=== PATIENT | female | born 1985 | race Caucasian/White ===

== ENCOUNTER 2017-05-20 16:14 | Observation (INO) ==
--- NOTE | 2017-05-20 17:22 | Discharge Summary ---
Date of Encounter: 05/20/17 Time of Encounter: 17:21 - Discharge Diagnosis (1) 32 weeks gestation of Priority: Primary Status: Acute Comments: admitted for observation After RNST patient discharge to go to ER for evaluation of Gallbladder. (2) NST (non-stress test) reactive Priority: Secondary Status: Acute Comments: 135 bpm moderate variability +15x15 accels no decels noted. No contractions noted - Discharge Medications Home Medications: Cetirizine HCl [Zyrtec] 10 mg PO DAILY 09/29/15 [History] Vit/FA 1 each PO DAILY 09/29/15 [History] Ranitidine HCl [Zantac] 150 mg PO BID 09/29/15 [History] Albuterol Sulfate [Albuterol Inhaler] 2 puff IH Q6HR PRN #1 inhaler 11/04/15 [Rx ] Ferrous Sulfate 325 mg PO DAILY #30 tablet 11/04/15 [Rx] Ibuprofen [Motrin] 600 mg PO TID #30 tablet 11/04/15 [Rx] HYDROcodone/Acet 5/325 mg [[place] 5-325 mg] 1 tab PO Q4H PRN #10 tab 03/19/16 [Rx ] Ondansetron [Zofran] 4 mg PO Q8HR #15 tablet 03/19/16 [Rx] Allergies/Adverse Reactions: Allergies morphine Allergy (Verified 03/19/16 18:51) Hives acetaminophen [From Darvocet-N] Adverse Reaction (Verified 03/19/16 18:51) Vomiting propoxyphene [From Darvocet-N] Adverse Reaction (Verified 03/19/16 18:51) Vomiting Date of admission: 05/20/17 16:14 Primary care physician: PCP NO Discharging clinician: Sarah Hernandez Anticipated date of discharge: 05/20/17 - Patient Status Disposition: Home, Self-Care - Discharge Instructions Follow Up With: NO,PCP [Primary Care Provider] - - Diet and Activity Activity: increase activity as tolerated Hospital Course BODY LINER Hospital course: Patient is 32 y/o at 32 weeks presents with c/o gallbladder attack. Patient denies contractions, LOF or VB. Patient reports +FM. Time Attestation: Total time spent providing and/or coordinating discharge services: Time Spent: Less than 30 minutes Exam - Constitutional General appearance IM: A&O X 3, pleasant, answers questions appropriately (FHR 135bpm moderate variability +15x15 accels no decels noted. RNST) - VTE Reasons for not Prescribing Prophylaxis: Treatment not Indicated - Low risk for VTE
== END 2017-05-20 17:25 | disposition home or self-care (01) ==
LOC: 1NENULAB
PROVIDERS: ADMIT Obstetrics & Gynecology; ATTEND Obstetrics & Gynecology

== ENCOUNTER 2017-06-16 21:04 | Observation (INO) ==
[2017-06-16 21:59] VITALS: BP 128/62
--- NOTE | 2017-06-16 22:37 | Discharge Summary ---
Date of Encounter: 06/16/17 - Discharge Diagnosis (1) uterine contractions in third trimester, antepartum Status: Acute - Discharge Medications Home Medications: Cetirizine HCl [Zyrtec] 10 mg PO DAILY 09/29/15 [History] Vit/FA 1 each PO DAILY 09/29/15 [History] Ranitidine HCl [Zantac] 150 mg PO BID 09/29/15 [History] Albuterol Sulfate [Albuterol Inhaler] 2 puff IH Q6HR PRN #1 inhaler 11/04/15 [Rx ] Ferrous Sulfate 325 mg PO DAILY #30 tablet 11/04/15 [Rx] Ibuprofen [Motrin] 600 mg PO TID #30 tablet 11/04/15 [Rx] HYDROcodone/Acet 5/325 mg [[place] 5-325 mg] 1 tab PO Q4H PRN #10 tab 03/19/16 [Rx ] Ondansetron [Zofran] 4 mg PO Q8HR #15 tablet 03/19/16 [Rx] Promethazine [Phenergan] 25 mg PO Q8HR PRN #8 tablet 05/20/17 [Rx] Ranitidine Oral Soln [Zantac] 150 mg PO BID #500 ml 05/20/17 [Rx] Allergies/Adverse Reactions: Allergies morphine Allergy (Verified 03/19/16 18:51) Hives acetaminophen [From Darvocet-N] Adverse Reaction (Verified 03/19/16 18:51) Vomiting propoxyphene [From Darvocet-N] Adverse Reaction (Verified 03/19/16 18:51) Vomiting Date of admission: 06/16/17 21:04 Primary care physician: PCP NONE - Patient Status Disposition: Home, Self-Care - Discharge Instructions Follow Up With: NONE,PCP [Primary Care Provider] - Additional Instructions: LABOR AND DELIVERY DISCHARGE INSTRUCTIONS Signs and Symptoms to be Reported to your Doctor Immediately: * Sudden gush, continuous or intermittent lead of fluid from vagina (note the time of gush and color of fluid) * Onset of bright red vaginal bleeding with or without pain (if you had a vaginal exam during this visit you may notice some dark red spotting. This is normal.) * Lower abdominal cramping or backache that is premenstrual-like feeling. * More than 6 contractions in one hour. * Burning during urination, having to urinate more frequently or pain in your mid-back. * A change in the baby's activity. This could be an increase or decrease in activity. * Severe headache which does not go away with tylenol. * Sudden swelling in the face, hands, arms and/or legs. * Upper abdominal pain - sometimes associated with heartburn or nausea and is not relieved by Maalox, Mylanta or Tums. * Dizziness or blurred vision or visual disturbances (seeing stars/lights). * Kick Counts One hour after a meal, lay down on one side in a quiet place. Count the number of avani the baby moves during an hour. If less than 6 movements, notify your physician. Diet: *Force fluids - 8-10 tall glasses of fluid per day. May include popsicles and jello. *Limit caffeine - this includes chocolate, coffee, tea, any soft drink containing such as all gallo, Jethro Yellow and Mountain Dew Hospital Course BUN ICER Time Attestation: Total time spent providing and/or coordinating discharge services: Exam - Constitutional Vitals: Temp Pulse Resp BP 97.5 F L 97 14 128/62 06/16/17 21:50 06/16/17 21:50 06/16/17 21:50 06/16/17 21:50 General appearance IM: A&O X 3 - Respiratory Respiratory exam: Present: CTAB - Cardiovascular Cardiovascular exam IM: Present: +S1, +S2 - GI/Abdominal GI/Abdominal exam IM: normal bowel sounds - Neurological Exam Neurological exam: CN II-XII intact - VTE Reasons for not Prescribing Prophylaxis: Treatment not Indicated - Low risk for VTE
--- NOTE | 2017-06-21 10:36 | Discharge Summary ---
Date of Encounter: 06/16/17 Time of Encounter: 22:00 - Discharge Diagnosis (1) 36 weeks gestation of Priority: Secondary Status: Chronic (2) False labor Priority: Primary Status: Ruled-out - Discharge Medications Home Medications: Cetirizine HCl [Zyrtec] 10 mg PO DAILY 09/29/15 [History] Vit/FA 1 each PO DAILY 09/29/15 [History] Ranitidine HCl [Zantac] 150 mg PO BID 09/29/15 [History] Albuterol Sulfate [Albuterol Inhaler] 2 puff IH Q6HR PRN #1 inhaler 11/04/15 [Rx ] Ferrous Sulfate 325 mg PO DAILY #30 tablet 11/04/15 [Rx] Ibuprofen [Motrin] 600 mg PO TID #30 tablet 11/04/15 [Rx] HYDROcodone/Acet 5/325 mg [[place] 5-325 mg] 1 tab PO Q4H PRN #10 tab 03/19/16 [Rx ] Ondansetron [Zofran] 4 mg PO Q8HR #15 tablet 03/19/16 [Rx] Promethazine [Phenergan] 25 mg PO Q8HR PRN #8 tablet 05/20/17 [Rx] Ranitidine Oral Soln [Zantac] 150 mg PO BID #500 ml 05/20/17 [Rx] Allergies/Adverse Reactions: Allergies morphine Allergy (Verified 03/19/16 18:51) Hives acetaminophen [From Darvocet-N] Adverse Reaction (Verified 03/19/16 18:51) Vomiting propoxyphene [From Darvocet-N] Adverse Reaction (Verified 03/19/16 18:51) Vomiting Date of admission: 06/16/17 21:04 Primary care physician: PCP NONE - Patient Status Disposition: Home, Self-Care Condition: Good Functional capacity at discharge: independent ambulation Overall status at discharge: patient is back to baseline - Discharge Instructions Follow Up With: NONE,PCP [Primary Care Provider] - Additional Instructions: LABOR AND DELIVERY DISCHARGE INSTRUCTIONS Signs and Symptoms to be Reported to your Doctor Immediately: * Sudden gush, continuous or intermittent lead of fluid from vagina (note the time of gush and color of fluid) * Onset of bright red vaginal bleeding with or without pain (if you had a vaginal exam during this visit you may notice some dark red spotting. This is normal.) * Lower abdominal cramping or backache that is premenstrual-like feeling. * More than 6 contractions in one hour. * Burning during urination, having to urinate more frequently or pain in your mid-back. * A change in the baby's activity. This could be an increase or decrease in activity. * Severe headache which does not go away with tylenol. * Sudden swelling in the face, hands, arms and/or legs. * Upper abdominal pain - sometimes associated with heartburn or nausea and is not relieved by Maalox, Mylanta or Tums. * Dizziness or blurred vision or visual disturbances (seeing stars/lights). * Kick Counts One hour after a meal, lay down on one side in a quiet place. Count the number of avani the baby moves during an hour. If less than 6 movements, notify your physician. Diet: *Force fluids - 8-10 tall glasses of fluid per day. May include popsicles and jello. *Limit caffeine - this includes chocolate, coffee, tea, any soft drink containing such as all gallo, [place] Yellow and Mountain Dew - Diet and Activity Activity: increase activity as tolerated Diet: advance to your usual diet Hospital Course ASSISTANT CREDIT MANAGER Time Attestation: Total time spent providing and/or coordinating discharge services: Exam - Constitutional Vitals: Temp Pulse Resp BP 97.5 F L 97 14 128/62 06/16/17 21:50 06/16/17 21:50 06/16/17 21:50 06/16/17 21:50 per nurses - VTE Reasons for not Prescribing Prophylaxis: Treatment not Indicated - Low risk for VTE - Attending Attestation isai judd md facog
== END 2017-06-16 22:30 | disposition home or self-care (01) ==
LOC: 1NENULAB
PROVIDERS: ADMIT Obstetrics & Gynecology; ATTEND Obstetrics & Gynecology

== ENCOUNTER → 2018-09-01 23:01 | Observation (INO) ==
[2018-09-01 21:22] LABS: Amphetamine Screen,Urine Negative ng/mL (Cutoff=1000); Barbiturate Screen,Urine Negative ng/mL (Cutoff=200); Benzodiazepines Screen,Urine Negative ng/mL (Cutoff=200); Cannabinoid Screen,Urine Negative ng/mL (Cutoff = 50); Cocaine Screen,Urine Negative ng/mL (Cutoff= 300); Opiate Screen,Urine Negative ng/mL (Cutoff=300); Phencyclidine Screen,Urine Negative ng/mL (Cutoff=25)
[2018-09-01 21:30] LABS: Basophils # 0.1 K/mcL (0.0-0.2); Basophils % 0.3 %; Eosinophils # 0.1 K/mcL (0.0-0.6); Eosinophils % 0.3 %; Hematocrit 35.8 % (35.3-44.9); Hemoglobin 11.9 g/dL (11.5-15.4); Immature Granulocytes % 0.4 % (0-4); Lymphocytes # 2.6 K/mcL (0.6-4.6); Lymphocytes % 12.8 %; Mean Corpuscular HGB Conc 33.2 g/dL (31.6-35.5); Mean Corpuscular Volume 87.1 fL (83.0-100.0); Mean Platelet Volume 11.1 fL (9.4-12.4); Monocytes # 1.4 K/mcL (0.0-1.3); Monocytes % 6.6 %; Neutrophils # 16.3 K/mcL (1.6-8.9); Platelet Count 309 K/mcL (140-400); Red Blood Count 4.11 M/mcL (3.82-4.97); Red Cell Distribution Width 13.9 % (11.5-14.5); Segmented Neutrophils % 79.6 %
[2018-09-01 21:32] LABS: Alanine Aminotransferase 9 Units/L (7-52); Aspartate Amino Transferase 12 Units/L (13-39); BUN/Creatinine Ratio 16 (6-26); Blood Urea Nitrogen 7 mg/dL (6-20); Lactate Dehydrogenase 138 Units/L (140-271); Uric Acid 5.4 mg/dL (2.3-7.6); eGFR For Non-African Americans > 60 (> 60)
--- NOTE | 2018-09-01 22:16 | OB/GYN Progress Note ---
Date of Encounter: 09/01/18 Time of Encounter: 22:10 - Assessment and Plan (1) False labor Current Visit: Yes Status: Acute SVE 1cm. Was 3cm at last visit according to pt. Rare contractions on toco. SSE with negative pooling, negative fern. Discharge home with precautions. POC discussed with Dr. Ramos who reviewed her FHT tracing. (2) 37 weeks gestation of Current Visit: No Status: Chronic PIH labs collected due to pt report of preeclampsia. BP's normal. Labs normal. (3) Tobacco abuse Current Visit: Yes Status: Acute (4) History of substance abuse Current Visit: Yes Status: Acute Subjective - Subjective Interval history: 33 year-old presenting with a reported EDC 09/08/18 with c/o abdominal pressure and leaking fluid. She denies bleeding or other complaints. Good FM. She reports receiving care at [facility] and at [facility]. She reports the is complicated by tobacco use (8 cigarettes per day), anemia, "mild preeclampsia". She denies any blood pressure medication. She also has a dermoid that has been present on her left ovary for several years. 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 Her 5 children are all in one foster home. Also of note this fetus was breech on last ultrasound. Antepartum ROS: no loss of fluid, no vaginal bleeding Objective - Exam FHR: category 1 FHR comments: FHT 125 with moderate variability Auscultation: bilateral: normal Abdomen: Present: soft, gravid. Absent: tenderness Uterus: Absent: tenderness Cervical dilation: visually closed Comments: SSE negative pooling, negative fern Awaiting records to confirm placental location prior to SVE - Labs Labs: Abnormal lab results WBC 20.5 K/mcL (4.3-11.1) H 09/01/18 20:40 Neutrophils # 16.3 K/mcL (1.6-8.9) H 09/01/18 20:40 Monocytes # 1.4 K/mcL (0.0-1.3) H 09/01/18 20:40 Creatinine 0.43 mg/dL (0.60-1.20) L 09/01/18 20:40 AST 12 Units/L (13-39) L 09/01/18 20:40 Lactate Dehydrogenase 138 Units/L (140-271) L 09/01/18 20:40
== END | disposition home or self-care (01) ==
LOC: 1NENULAB
PROVIDERS: ADMIT Registered Nurse; ATTEND Registered Nurse

== ENCOUNTER 2018-09-17 09:22 | Inpatient (IN) ==
[2018-09-17] MEDS ORDERED: Naloxone 0.4 MG/ML INJ IVP PRN (10:12)
[2018-09-17] MEDS ORDERED: Famotidine 20 MG/2 ML VIAL IVP PRN (10:12)
[2018-09-17] MEDS ORDERED: Ondansetron 4 MG/2 ML VIAL IVP PRN (10:12)
[2018-09-17] MEDS ORDERED: Metoclopramide 10 MG/2 ML VIAL IVP PRN (10:12)
[2018-09-17] MEDS ORDERED: Ringers Solution, Lactated 1,000 ML IVC SCH (10:15)
[2018-09-17 10:43] LABS: Basophils # 0.1 K/mcL (0.0-0.2); Basophils % 0.4 %; Eosinophils # 0.1 K/mcL (0.0-0.6); Eosinophils % 0.8 %; Hematocrit 38.5 % (35.3-44.9); Hemoglobin 12.8 g/dL (11.5-15.4); Immature Granulocytes % 0.5 % (0-4); Lymphocytes # 2.3 K/mcL (0.6-4.6); Lymphocytes % 13.4 %; Mean Corpuscular HGB Conc 33.2 g/dL (31.6-35.5); Mean Corpuscular Hemoglobin 28.7 pg (28.0-33.3); Mean Corpuscular Volume 86.3 fL (83.0-100.0); Mean Platelet Volume 10.4 fL (9.4-12.4); Monocytes % 6.1 %; Neutrophils # 13.4 K/mcL (1.6-8.9); Platelet Count 323 K/mcL (140-400); Red Blood Count 4.46 M/mcL (3.82-4.97); Red Cell Distribution Width 13.9 % (11.5-14.5); Segmented Neutrophils % 78.8 %
[2018-09-17 10:57] LABS: BUN/Creatinine Ratio 13 (6-26); Blood Urea Nitrogen 6 mg/dL (6-20); Calcium 8.9 mg/dL (8.6-10.3); Carbon Dioxide 18 mEq/L (23-29); Chloride 108 mEq/L (98-107); Glucose 92 mg/dL (70-105); Osmolality,Calculated 279 (280-300); Potassium 3.9 mEq/L (3.5-5.1); Sodium 136 mEq/L (136-145); eGFR For Non-African Americans > 60 (> 60)
[2018-09-17 11:22] LABS: Amphetamine Screen,Urine Negative ng/mL (Cutoff=1000); Barbiturate Screen,Urine Negative ng/mL (Cutoff=200); Benzodiazepines Screen,Urine Negative ng/mL (Cutoff=200); Cannabinoid Screen,Urine Negative ng/mL (Cutoff = 50); Cocaine Screen,Urine Negative ng/mL (Cutoff= 300); Opiate Screen,Urine Negative ng/mL (Cutoff=300); Phencyclidine Screen,Urine Negative ng/mL (Cutoff=25)
--- NOTE | 2018-09-17 11:29 | OB/GYN History & Physical ---
Date of Encounter: 09/17/18 Time of Encounter: 11:00 Assessment and Plan (1) 39 weeks gestation of Current visit: Yes Status: Acute Pt with multiple complications including smoking and AMA status and has not been seeing her primary OB regularly. Plan for IOL. POC per Dr. Andrade. (2) History of delivery, currently Current visit: No Status: Acute (3) History of substance abuse Current visit: No Status: Acute (4) Tobacco abuse Current visit: No Status: Acute (5) Flank pain Current visit: Yes Status: Acute Concern for UTI or kidney stone. UA pending. History of Present Illness Chief complaint: flank pain HPI: Ms. White is a 33 year old female presenting at 39w6d with c/o right flank pain. She reports sudden onset of constant pain with intermittent exacerbations. Pain is worse with supine positioning. No leaking, bleeding, or contractions. No urinary sx. Good FM. 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 Pt also reports hx of COPD. SHe has a history of opioid addiction for which she is in counseling but is not on maintenance medication. GBS negative HIV negative Blood type O positive RPR negative Hep B sag negative Rubella immune Hep C negative Past Med Surg Social Fam HX - Past Medical History Medical history: COPD Additional medical history: anemia, recovering vicodin addict-currently receiving treatment. Psychiatric history: anxiety, depression - Past Surgical History Surgical History: other Additional surgical history: T&A, tubes in ears - Social History Smoking Status: Current every day smoker Packs per day: half Smokeless Tobacco Status: No Alcohol use: none Drug use: none - Family History Father Family Member Ethnicity: Non- Living Status: Still Living Hx Family Cardiac Disorders: Yes (HIGH CHOLESTEROL,DVT) Hx Family Respiratory Disorders: No Hx Family Cancer: Yes (SKIN CANCER AND KIDNEY CANCER) Hx Family GI Disorders: No Hx Family Endocrine Disorder: No Hx Family Neuromuscular Disorders: No Hx Family Neurologic Disorders: No Hx Family HEENT Disorders: No Hx Family Autoimmune Disorders: No Obstetrical History - Pregnancies : 11 Para: 5 Term: 4 : 1 Ab's: 5 Livin Medications and Allergies Cetirizine HCl [Zyrtec] 10 mg PO DAILY 09/29/15 [History] Vit/FA 1 each PO DAILY 09/29/15 [History] Albuterol Sulfate [Albuterol Inhaler] 2 puff IH Q6HR PRN #1 inhaler 11/04/15 [Rx] Ferrous Sulfate 325 mg PO DAILY #30 tablet 11/04/15 [Rx] Docusate Sodium [Dulcolax Stool Softener] 100 mg PO DAILY 09/17/18 [History] Famotidine [Pepcid] 20 mg PO BID 09/17/18 [History] Promethazine [Phenergan] 12.5 mg PO Q8HR PRN 09/17/18 [History] Allergy/AdvReac Type Severity Reaction Status Date / Time morphine Allergy Hives Verified 09/01/18 22:14 acetaminophen AdvReac Vomiting Verified 09/01/18 22:14 [From Darvocet-N] propoxyphene AdvReac Vomiting Verified 09/01/18 22:14 [From Darvocet-N] Review of System OB All systems PM: reviewed and no additional remarkable complaints except as stated Exam - Constitutional Constitutional: well developed, well nourished, no acute distress, obese - HEENT HEENT: Mucus Membranes Moist - Lungs Respiratory exam: CTAB - Cardiovascular Cardiovascular exam: RRR - Abdomen Abdomen: Present: gravid, non tender - Extremities Extremities exam: pedal edema (mild bilaterally) - Vulva Vulva: bilateral: normal - Cervix Dilation: 1 Effacement: 50 Station: -2 - Anus/Rectum Anus/Rectum: Present: normal perianal skin Results Result Diagrams: 09/17/18 10:20 09/17/18 10:20 Abnormal lab results WBC 17.0 K/mcL (4.3-11.1) H 09/17/18 10:20 Neutrophils # 13.4 K/mcL (1.6-8.9) H 09/17/18 10:20 Chloride 108 mEq/L (98-107) H 09/17/18 10:20 Carbon Dioxide 18 mEq/L (23-29) L 09/17/18 10:20 Creatinine 0.48 mg/dL (0.60-1.20) L 09/17/18 10:20 Calculated Osmolality 279 (280-300) L 09/17/18 10:20 All other labs normal. - VTE Reasons for not Prescribing Prophylaxis: Treatment not Indicated - Low risk for VTE
[2018-09-17 12:46] LABS: Bilirubin,Urine Negative (Negative); Blood,Urine Trace (Negative); Clarity,Urine Cloudy (Clear); Color,Urine Yellow (Yellow); Glucose,Urine (UA) Normal (Normal); Ketones,Urine Negative (Negative); Leukocyte Esterase,Urine Large (Negative); Nitrite,Urine Negative (Negative); PH,Urine 6.5 pH Units (5.0-8.0); Protein,Urine 30 mg/dL (Neg-Trace); Specific Gravity,Urine 1.011 (1.010-1.025); Urobilinogen,Urine Normal (Normal)
[2018-09-17 12:48] LABS: Bacteria,Urine Moderate per hpf (None-Few); Hyaline Casts,Urine None Seen per lpf (None-Few); RBC,Urine 15-30 per hpf (0-3); Squamous Epithelial Cell,Urine Many per lpf (None-Few); WBC,Urine TNTC per hpf (0-3)
[2018-09-17] MEDS ORDERED: cefTRIAXone 2,000 MG in 0.9 % Sodium Chloride Mini Bag 100 ML IVPB ONE (14:07)
[2018-09-17] MEDS ORDERED: miSOPROStol 100 MCG TABLET PO STA (14:57)
--- NOTE | 2018-09-17 16:57 | Anesthesia Evaluation PreOp ---
Date of Encounter: 09/17/18 Time of Encounter: 16:55 - Past History Planned Operation: neftaly Cardiac History: Denies any Significant Hx Pulmonary History: Smoker (1/2 ppd), Pack/yr (20), COPD TELEPHONE EXCHANGE OPERATOR History: Denies Any Significant HX Other Medical History: GERD, Other (anxiety, depression) Anesthesia History: No Prior Anesthetic Complications, Past Anesthesia (tonsil, bmt) : Yes Test: Positive Alcohol Use: none Drug use: none (recovery, clean 1 year) Medications and Allergies Cetirizine HCl [Zyrtec] 10 mg PO DAILY 09/29/15 [History] Vit/FA 1 each PO DAILY 09/29/15 [History] Albuterol Sulfate [Albuterol Inhaler] 2 puff IH Q6HR PRN #1 inhaler 11/04/15 [Rx] Ferrous Sulfate 325 mg PO DAILY #30 tablet 11/04/15 [Rx] Docusate Sodium [Dulcolax Stool Softener] 100 mg PO DAILY 09/17/18 [History] Famotidine [Pepcid] 20 mg PO BID 09/17/18 [History] Promethazine [Phenergan] 12.5 mg PO Q8HR PRN 09/17/18 [History] Allergy/AdvReac Type Severity Reaction Status Date / Time morphine Allergy Hives Verified 09/01/18 22:14 acetaminophen AdvReac Vomiting Verified 09/01/18 22:14 [From Darvocet-N] propoxyphene AdvReac Vomiting Verified 09/01/18 22:14 [From Darvocet-N] - Meds/Allergy Pre-op Review Medications Reviewed: Yes Allergies Reviewed: Yes Beta Blockers on Current Med List: No Anesthesia Results - Labs 09/17/18 10:20 09/17/18 10:20 Anesthesia Exam 125/59 81 16 fht 138 Height: 5'1" Weight: 99 k NPO (# of Hours): 3 Pain Scale: 6 Pain Scale Used: Numeric (1 - 10) - HEENT Pupil (Motor): Pupils equal Mallampati: II Teeth: Edentulous Oral Opening: Greater than 3 - TELEPHONE EXCHANGE OPERATOR LOC: Oriented TELEPHONE EXCHANGE OPERATOR Motor: Normal RUE, Normal LUE, Normal RLE, Normal LLE, Normal Face TELEPHONE EXCHANGE OPERATOR Sensory: Normal: RUE, LUE, RLE, LLE, Face - Cardiac Rhythm: Regular Murmur: None - Pulmonary Breath Sounds: bilateral Clear Respiratory Effort: Symmetrical Anesthesia Assess/Plan ASA Score: 2 Level of consciousness: Cooperative Anesthetic Plan: Epidural Autologous Blood: No Monitoring Plan: Standard Monitors Recovery Plan: Other (risks discussed questions answered consented)
[2018-09-17] MEDS ORDERED: *HR* FentaNYL (PF) 100 MCG/2 ML VIAL EP ONE (16:59)
[2018-09-17] MEDS ORDERED: *HR* Ropivacaine/PF 0.2% 20 ML VIAL EP ONE (16:59)
[2018-09-17] MEDS ORDERED: Epidural Premix (fent/bupiv) 110 ML EP SCH (17:00)
[2018-09-17] MEDS ORDERED: *HR* FentaNYL (PF) 100 MCG/2 ML VIAL ONE (17:06)
[2018-09-17] MEDS ORDERED: Lidocaine -MPF 2% 5 ML VIAL ONE (17:06)
[2018-09-17] MEDS ORDERED: *HR* Ropivacaine/PF 0.2% 20 ML VIAL ONE (17:07)
--- NOTE | 2018-09-17 17:35 | Anesthesia Procedures ---
Addendum entered and electronically signed by Thad Avilez CRNA 09/18/18 07:08: Infant Delivery Date: 09/18/18 Infant Delivery Time: 01:29 Original Note: Date of Encounter: 09/17/18 Time of Encounter: 17:33 Procedures: Anesthesia - Epidural/Spinal Patient ID/Chart reviewed: Yes Patient examined: Yes OB Eval: : 11 OB Eval: Hx Para: 4 OB Eval: Dilated at (cm): 5 OB Eval: Contractions: Non-stressed pattern Consent Obtained: Yes Supplemental Oxygen: None/Room Air Site Prep: Aseptic Technique, Sterile prep and drape, 0.5% Chlorhexidine/Alcohol Patient position: upright Local Anesthetic: Lidocaine 1% Amount of Local Anesthetic used: 3 Touhy Needle Gauge: 18 Touhy Needle Depth (cm): 9 Catheter Depth at Skin (cm): 20 Test Dose (1.5% Lido + Epi): Volume given (mls): 3 Test Dose Result: Negative Loading Dose: Fentanyl (mcg): 100 Loading Dose: Other: rop 0.2% 10cc Loading Dose Administered: Thru Touhy Needle Infusion Med: 0.125% Bupivacaine w/ 2 mcg/ml Fentanyl Infusion Rate (mls/hr): [address]: Tegaderm Interspace Used: L3-L4 Loss of Resistance (SILVANA): Yes Blood: No CSF: No Paresthesia: No Procedure: aseptic, mac well, vss Vitals + FHT's: 20/75 66 16 fht 133
[2018-09-17] MEDS ORDERED: Oxytocin 20 units/ LR 1000 mL 20 UNIT/1,000 ML BAG IVC SCH (21:30)
[2018-09-17] MEDS ORDERED: Levonorgestrel 52 MG IUD IY ONE (22:56)
--- NOTE | 2018-09-18 01:55 | OB/GYN Procedure Note ---
Delivery - Delivery Date: 09/18/18 Provider: Patricia Goode Intrapartum events: none Delivery induction: virk Delivery augmentation: rupture of membranes, pitocin Delivery monitor: external FHT, internal uterine Anesthesia: epidural Quantitated Blood Loss: 200 - Infant (s) A Infant Delivery Date: 09/18/18 Infant Delivery Time: 01:29 Presentation: vertex Position: HEAVENLY Route of delivery: Gender: Male Viability: Viable Pounds: 7 Ounces: 6 Weight Gram: 3.355 kg at 1 minute: 3 at 5 mins: 8 Shoulder Dystocia: not encountered Specimens collected: cord blood, venous cord gases, arterial cord gases Placenta: spontaneous Cord: nuchal cord (loose), delivered through nuchal - Repair Episiotomy: none Laceration Description: None - Complications Delivery complications: none Delivery comments: Ms. White is a 33 year old female who presented at 39w6d with complaint of right flank pain. Kept for IOL per Dr. Andrade. Virk induction and then augmented with AROM of thin meconium and pitocin and progressed normally. of a viable male "Korey Burns" weighing 7lbs 6oz with apgars of 3 at 1 minute and 8 at 5 minutes. Cord was clamped and cut immediately and was handed to nursery staff and taken to warmer. Placenta delivered spontaneously and intact. Peripheral cord insertion noted. No lacerations. EBL 200ml. Mirena IUD placed in fundus using ring forceps following delivery of placenta per pt request. Strings trimmed inside introitus. Pt educated regarding expulsion risk and warning signs. Plan to trim strings shorter prior to discharge or at visit. Mother and baby stable in kangaroo care following procedure. - Disposition Mom disposition: stable in LDR disposition: stable in LDR
[2018-09-18] MEDS ORDERED: Benzocaine/Menthol 56 GM AEROSOL SPRAY TP PRN (05:00)
[2018-09-18] MEDS ORDERED: Measles/Mumps/Rubella Vacc 0.5 ML VIAL SQ PRN (05:00)
[2018-09-18] MEDS ORDERED: Oxytocin 20 units/ LR 1000 mL 20 UNIT/1,000 ML BAG IVC SCH (05:00)
[2018-09-18] MEDS: Ibuprofen 600 MG TABLET PO PRN ×2 (05:43→16:02)
[2018-09-18] MEDS: Famotidine 20 MG TABLET PO SCH ×2 (08:21→19:51)
[2018-09-18] MEDS: Loratadine 10 MG TABLET PO SCH (08:21)
[2018-09-18] MEDS: Prenatal Vit/FA 1 EACH TABLET PO SCH (08:22)
[2018-09-18] MEDS ORDERED: CefTRIAXone 1,000 MG VIAL IM ONE (08:32)
[2018-09-19] MEDS: Ibuprofen 600 MG TABLET PO PRN ×2 (03:50→10:06)
[2018-09-19 07:51] VITALS: BP 118/75
[2018-09-19] MEDS: Loratadine 10 MG TABLET PO SCH (07:52)
[2018-09-19] MEDS: Famotidine 20 MG TABLET PO SCH (07:52)
[2018-09-19] MEDS: Prenatal Vit/FA 1 EACH TABLET PO SCH (07:53)
[2018-09-19] MEDS ORDERED: Lanolin 7 G OINT...G. TP PRN (08:07)
--- NOTE | 2018-09-19 10:51 | Discharge Summary ---
Date of Encounter: 09/19/18 Time of Encounter: 10:49 - Discharge Diagnosis (1) Status post vaginal delivery Priority: Primary Status: Acute Comments: Patient meeting day 1 milestones. Voiding without difficulty. No bowel movement yet. Patient well-controlled with Motrin. Request discharge to guest status today. (2) History of substance abuse Priority: Secondary Status: Acute Comments: Patient reports a history of substance abuse. States she has been clean for 1 year. She is not on any maintenance medication. Social service consult (3) Tobacco abuse Priority: Secondary Status: Acute Comments: Encourage cessation and give materials. (4) Breast feeding status of mother Priority: Secondary Status: Acute Comments: support when necessary. Patient states she has a breast pump at home. (5) IUD (intrauterine device) in place Priority: Secondary Status: Acute Comments: IUD inserted per CNM postdelivery. Instructed on expulsion rate. Patient follow-up in office in 4 weeks. - Discharge Medications Prescriptions: Ibuprofen [Motrin] 600 mg PO Q6H PRN #60 tablet PRN Reason: Cramping Home Medications: Cetirizine HCl [Zyrtec] 10 mg PO DAILY 09/29/15 [History] Vit/FA 1 each PO DAILY 09/29/15 [History] Albuterol Sulfate [Albuterol Inhaler] 2 puff IH Q6HR PRN #1 inhaler 11/04/15 [Rx] Docusate Sodium [Dulcolax Stool Softener] 100 mg PO DAILY 09/17/18 [History] Famotidine [Pepcid] 20 mg PO BID 09/17/18 [History] Benzocaine/Menthol [place] [Dermoplast [place]] 1 appl TP QID PRN aerosol 09/19/18 [Rx] Ibuprofen [Motrin] 600 mg PO Q6H PRN #60 tablet 09/19/18 [Rx] Lanolin [Lansinoh] 1 appl TP Q4HR PRN oint...g. 09/19/18 [Rx] Allergies/Adverse Reactions: Allergy/AdvReac Type Severity Reaction Status Date / Time morphine Allergy Hives Verified 09/01/18 22:14 acetaminophen AdvReac Vomiting Verified 09/01/18 22:14 [From Darvocet-N] propoxyphene AdvReac Vomiting Verified 09/01/18 22:14 [From Darvocet-N] Data Procedures and tests throughout hospitalization: Laboratory Tests 09/17/18 09/17/18 09/17/18 10:20 10:20 10:20 WBC 17.0 H RBC 4.46 Hgb 12.8 Hct 38.5 MCV 86.3 MCH 28.7 MCHC 33.2 RDW 13.9 Plt Count 323 MPV 10.4 Immature Gran % 0.5 Seg Neutrophils % 78.8 Lymphocytes % 13.4 Monocytes % 6.1 Eosinophils % 0.8 Basophils % 0.4 Neutrophils # 13.4 H Lymphocytes # 2.3 Monocytes # 1.0 Eosinophils # 0.1 Basophils # 0.1 Sodium 136 Potassium 3.9 Chloride 108 H Carbon Dioxide 18 L BUN 6 Creatinine 0.48 L Est GFR ( Amer) > 60 Est GFR (Non-Af Amer) > 60 BUN/Creatinine Ratio 13 Glucose 92 Calculated Osmolality 279 L Calcium 8.9 Urine Color Urine Clarity Urine pH Ur Specific [place] Urine Protein Urine Glucose (UA) Urine Ketones Urine Blood Urine Nitrite Urine Bilirubin Urine Urobilinogen Ur Leukocyte Esterase Urine Microscopic RBC Urine Microscopic WBC Ur Squamous Epith Cells Urine Bacteria Hyaline Casts Ur Culture Indicated? Urine Opiates Screen Negative Ur Barbiturates Screen Negative Ur Phencyclidine Scrn Negative Ur Amphetamines Screen Negative U Benzodiazepines Scrn Negative Urine Cocaine Screen Negative U Marijuana (THC) Screen Negative Ur Drug Screen Interp See Below 09/17/18 10:20 WBC RBC Hgb Hct MCV MCH MCHC RDW Plt Count MPV Immature Gran % Seg Neutrophils % Lymphocytes % Monocytes % Eosinophils % Basophils % Neutrophils # Lymphocytes # Monocytes # Eosinophils # Basophils # Sodium Potassium Chloride Carbon Dioxide BUN Creatinine Est GFR ( Amer) Est GFR (Non-Af Amer) BUN/Creatinine Ratio Glucose Calculated Osmolality Calcium Urine Color Yellow Urine Clarity Cloudy A Urine pH 6.5 Ur Specific [place] 1.011 Urine Protein 30 H Urine Glucose (UA) Normal Urine Ketones Negative Urine Blood Trace H Urine Nitrite Negative Urine Bilirubin Negative Urine Urobilinogen Normal Ur Leukocyte Esterase Large H Urine Microscopic RBC 15-30 H Urine Microscopic WBC TNTC H Ur Squamous Epith Cells Many H Urine Bacteria Moderate H Hyaline Casts None Seen Ur Culture Indicated? NO. A Urine Opiates Screen Ur Barbiturates Screen Ur Phencyclidine Scrn Ur Amphetamines Screen U Benzodiazepines Scrn Urine Cocaine Screen U Marijuana (THC) Screen Ur Drug Screen Interp Date of admission: 09/17/18 09:22 Primary care physician: PCP NONE Consults: 09/18/18 05:00 Consult to [place] Operator [CONS] Routine Comment: Vaginal delivery, consult needed Consult to [employer] Clerk [CONS] Routine Reason for SW Consult: children in foster care Discharging clinician: Mikayla Vee Anticipated date of discharge: 09/19/18 - Patient Status Disposition: Home, Self-Care Condition: Good Functional capacity at discharge: independent ambulation Overall status at discharge: patient is progressing back to baseline - Discharge Instructions Follow Up With: NONE,PCP [Primary Care Provider] - Patricia Goode, CNM [Non-Partnered Physician] - - Diet and Activity Activity: resume usual activities as tolerated Diet: regular diet Hospital Course Reason for admission: induction of labor Delivery: Episiotomy: none Laceration: none Other procedures: none complications: none Discharge diagnosis: IUP at term delivered [place] baby: male Hospital course: Meeting day 1 milestones. 40 without difficulty. Tolerating regular diet. Pain well-controlled with Motrin. Patient would like to be discharged to guest status today. - Delivery Date: 09/18/18 Provider: Patricia Goode Intrapartum events: none Delivery induction: virk Delivery augmentation: rupture of membranes, pitocin Delivery monitor: external FHT, internal uterine Anesthesia: epidural Quantitated Blood Loss: 200 - Infant (s) Infant A Delivery Date: 09/18/18 Infant Delivery Time: 01:29 Presentation: vertex Position: HEAVENLY Route of delivery: Gender: Male Viability: Viable Pounds: 7 Ounces: 6 Weight Gram: 3.355 kg at 1 minute: 3 at 5 mins: 8 Shoulder Dystocia: not encountered Specimens collected: cord blood, venous cord gases, arterial cord gases Placenta: spontaneous Cord: nuchal cord (loose), delivered through nuchal - Repair Episiotomy: none Laceration Description: None - Complications Delivery complications: none Delivery comments: Ms. White is a 33 year old female who presented at 39w6d with complaint of right flank pain. Kept for IOL per Dr. Andrade. Virk induction and then augmented with AROM of thin meconium and pitocin and progressed normally. of a viable male "Korey Burns" weighing 7lbs 6oz with apgars of 3 at 1 minute and 8 at 5 minutes. Cord was clamped and cut immediately and infant was handed to nursery staff and taken to warmer. Placenta delivered spontaneously and intact. Peripheral cord insertion noted. No lacerations. EBL 200ml. Mirena IUD placed in fundus using ring forceps following delivery of placenta per pt request. Strings trimmed inside introitus. Pt educated regarding expulsion risk and warning signs. Plan to trim strings shorter prior to discharge or at visit. Mother and baby stable in kangaroo care following procedure. Time Attestation: Total time spent providing and/or coordinating discharge services: Time Spent: Less than 30 minutes Exam - Constitutional Vitals: Temp Pulse Resp BP Pulse Ox 97.6 F 69 16 118/75 97 09/19/18 07:30 09/19/18 07:30 09/19/18 07:30 09/19/18 07:30 09/18/18 20:18 General appearance IM: A&O X 3, pleasant, no acute distress, obese, answers questions appropriately - Respiratory Respiratory exam: Present: CTAB - Cardiovascular Cardiovascular exam IM: Present: RRR, +S1, +S2 - GI/Abdominal GI/Abdominal exam IM: normal bowel sounds - Rectal Rectal exam: deferred - Uterine Tone: Firm Uterus Position: 1 Finger Below Umbilicus - Extremities Exam Extremities exam IM: Present: full ROM, normal capillary refill, normal inspection, pedal edema, warm - Neurological Exam Neurological exam: alert, normal gait, oriented X3
== END 2018-09-19 11:16 | disposition home or self-care (01) | DRG 560 ==
LOC: 1NENULAB → OBSVTOIN 09:22 → 1NENULAB 10:14 → 1NENUOBS 09-18 04:51
PROVIDERS: ADMIT Registered Nurse; ATTEND Registered Nurse